=== PATIENT | female | born 1965 | race Caucasian/White ===

== ENCOUNTER → 2017-03-31 | Outpatient (REF) | payer MEDICARE ==
[2017-03-31 20:26] LABS: FREE T4 1.2 NG/DL (0.76-1.46)
== END ==
LOC: M SFHCPLAZ 14:53
PROVIDERS: ATTEND Nurse Practitioner Family
DX: E03.9 Hypothyroidism, unspecified (principal)
CPT/HCPCS: 36415; 84439; 84443; G0463

== ENCOUNTER 2017-07-01 08:39 | Outpatient (CLI) | payer MEDICARE, MEDICAID ==
[~2017-07-01] VITALS: Ht 157.5 cm; Wt 111.1 kg
[2017-07-01] MEDS: LR 1,000 ML IV SCH ×2 (07:00→09:18)
[~2017-07-01 08:39] MED LIST: CETI10TA PO; LEVO50TA5 PO; VITA200010 PO
[2017-07-01] MEDS ORDERED: LIDOCAINE 2% INJ 100 MG/5 ML SDV (FOR ANES.) As Ordered ONE (09:53)
[2017-07-01] MEDS ORDERED: PROPOFOL 200 MG/20 ML VIAL As Ordered ONE (09:53)
[2017-07-01] MEDS ORDERED: GLYCOPYRROLATE INJ 0.2 MG/ML 2 ML VIAL As Ordered ONE (10:26)
--- NOTE | 2017-07-01 10:47 | ROOR ---
Patient Name: Brii Alvares Procedure Date: 07/01/2017 10:19 AM Date of : 1965 Age: 52 Room: [facility] Gender: Female Note Status: Finalized Procedure: Colonoscopy Indications: Screening for colorectal malignant neoplasm, This is the patient's first colonoscopy Providers: Alex العراقي MD Referring MD: NYA RIZZO MD Requesting Provider: Medicines: Monitored Anesthesia Care Complications: No immediate complications. Procedure: Pre-Anesthesia Assessment: - Prior to the procedure, a History and Physical was performed, and patient medications and allergies were reviewed. The patient is competent. The risks and benefits of the procedure and the sedation options and risks were discussed with the patient. All questions were answered and informed consent was obtained. Patient identification and proposed procedure were verified by the physician, the nurse and the anesthesiologist in the procedure room. Mental Status Examination: alert and oriented. Airway Examination: normal oropharyngeal airway and neck mobility. CV Examination: regular rate and rhythm. Prophylactic Antibiotics: The patient does not require prophylactic antibiotics. Prior Anticoagulants: The patient has taken no previous anticoagulant or antiplatelet agents. ASA Grade Assessment: II - A patient with mild systemic disease. After reviewing the risks and benefits, the patient was deemed in satisfactory condition to undergo the procedure. The anesthesia plan was to use monitored anesthesia care (MAC). Immediately prior to administration of medications, the patient was re-assessed for adequacy to receive sedatives. The heart rate, respiratory rate, oxygen saturations, blood pressure, adequacy of pulmonary ventilation, and response to care were monitored throughout the procedure. The physical status of the patient was re-assessed after the procedure. The Colonoscope [id number] #[id number] was introduced through the anus and advanced to the cecum, identified by appendiceal orifice and ileocecal valve. The colonoscopy was performed without difficulty. The patient tolerated the procedure well. The quality of the bowel preparation was excellent. Findings: The perianal and digital rectal examinations were normal. A 3 mm polyp was found in the rectum. The polyp was semi-sessile. The polyp was removed with a jumbo cold forceps. Resection and retrieval were complete. Estimated blood loss was minimal. The exam was otherwise without abnormality. Impression: - One 3 mm polyp in the rectum, removed with a jumbo cold forceps. Resected and retrieved. - The examination was otherwise normal. Recommendation: - Discharge patient to home. - Resume previous diet. - Continue present medications. - Await pathology results. - Telephone endoscopist for pathology results in 1 week. Alex العراقي MD 07/01/2017 10:47:21 AM Number of Addenda: 0 Note Initiated On: 07/01/2017 10:19 AM Estimated Blood Loss: Estimated blood loss was minimal.
[2017-07-01 11:03] VITALS: BP 132/94
== END 2017-07-01 11:07 | disposition home or self-care (01) ==
LOC: M OPP 08:39
PROVIDERS: ATTEND Surgery
DX: Z12.11 Encounter for screening for malignant neoplasm of colon (principal); K62.1 Rectal polyp; E03.9 Hypothyroidism, unspecified; E66.9 Obesity, unspecified; F79 Unspecified intellectual disabilities; Z88.1 Allergy status to other antibiotic agents; Z79.899 Other long term (current) drug therapy; Z83.71 Family history of colonic polyps; Z80.42 Family history of malignant neoplasm of prostate

== ENCOUNTER → 2017-07-17 | Outpatient (CLI) | payer MEDICARE, MEDICAID ==
--- NOTE | 2017-07-17 10:03 | REPMRS ---
Patient History The patient states she had a clinical breast exam in 07/2017. Patient is nulliparous. Family history of unknown cancer in maternal aunt. Digital Woman Screen Mammo: July 17, 2017 - Exam #: [id number] Bilateral CC and MLO view(s) were taken. Technologist: Nancy Aparicio, Technologist Prior study comparison: July 16, 2016, digital woman screen mammo performed at [facility]. July 13, 2015, digital woman screen mammo performed at [facility]. FINDINGS: There are scattered fibroglandular densities. There has been no change in the appearance of the mammogram from the prior studies. There is a mild amount of residual fibroglandular tissue which is fairly symmetric. There is no interval development of dominant mass, architectural distortion, or clustered microcalcification suggestive of malignancy. ASSESSMENT: BI-RADS/ACR category 1 mammogram. Negative. Recommendation Routine screening mammogram in 1 year (for women over age 40). This mammogram was interpreted with the aid of an FDA-approved computer-aided dectection system. Electronically Signed By: Mg Doll MD 07/17/17 1002
== END ==
LOC: M WHC 08:30
PROVIDERS: ATTEND Nurse Practitioner Women's Health
DX: Z01.419 Encounter for gynecological examination (general) (routine) without abnormal findings (principal); Z12.31 Encounter for screening mammogram for malignant neoplasm of breast
CPT/HCPCS: G0101; G0202

== ENCOUNTER 2017-10-11 09:11 | Outpatient (CLI) | payer MEDICARE, MEDICAID | END 2017-10-12 | LOC: M WUC 09:11 | DX: E78.5 Hyperlipidemia, unspecified (principal); E03.9 Hypothyroidism, unspecified | CPT/HCPCS: 36415 ==

== ENCOUNTER → 2017-10-24 | Outpatient (CLI) | payer MEDICARE, MEDICAID ==
[2017-10-24 09:24] LABS: ALBUMIN 3.5 GM/DL (3.2-5.2); ALBUMIN/GLOBULIN RATIO 1.21 (1.00-1.93); ALKALINE PHOSPHATASE 68 U/L (45-117); ALT/SGPT 20 U/L (12-78); ANION GAP 5 MEQ/L (8-16); AST/SGOT 14 U/L (7-37); BILIRUBIN,TOTAL 0.4 MG/DL (0.2-1.0); BLOOD UREA NITROGEN 14 MG/DL (7-18); CALCIUM LEVEL 8.5 MG/DL (8.5-10.1); CARBON DIOXIDE LEVEL 31 MEQ/L (21-32); CHLORIDE LEVEL 104 MEQ/L (98-107); CHOLESTEROL LEVEL 167 MG/DL (<200); CREATININE FOR GFR 0.67 MG/DL (0.55-1.02); GLOMERULAR FILTRATION RATE > 60.0 (>51); GLUCOSE, FASTING 81 MG/DL (70-105); POTASSIUM SERUM 4.7 MEQ/L (3.5-5.1); SODIUM LEVEL 140 MEQ/L (136-145); TOTAL PROTEIN 6.4 GM/DL (6.4-8.2); TRIGLYCERIDES LEVEL 51 MG/DL (<150)
== END ==
LOC: M WUC 08:03
PROVIDERS: ATTEND Nurse Practitioner Family
DX: E78.5 Hyperlipidemia, unspecified (principal); E03.9 Hypothyroidism, unspecified; E55.9 Vitamin D deficiency, unspecified

== ENCOUNTER → 2018-03-05 | Outpatient (CLI) | payer MEDICARE, MEDICAID | LOC: M RAD 14:44 | DX: N92.1 Excessive and frequent menstruation with irregular cycle (principal); D25.9 Leiomyoma of uterus, unspecified | CPT/HCPCS: 76856 ==

== ENCOUNTER → 2018-04-15 | Outpatient (REF) | payer MEDICARE, MEDICAID ==
[2018-04-15 17:25] LABS: BASO % 0.5 % (0.0-1.0); EOS # 0.1 10^3/uL (0.0-0.50); EOS % 1.1 % (0.0-3.0); HEMATOCRIT 39.4 % (36.0-47.0); HEMOGLOBIN 13.2 g/dl (12.0-15.5); IMMATURE GRANULOCYTE % 0.2 % (0-3.0); LYMPH # 1.9 10^3/uL (1.5-4.5); LYMPH % 28.5 % (24.0-44.0); MEAN CORPUSCULAR HEMOGLOBIN 29.3 pg (27.0-33.0); MEAN CORPUSCULAR HGB CONC 33.5 g/dl (32.0-36.5); MEAN CORPUSCULAR VOLUME 87.6 fl (80.0-96.0); MONO # 0.6 10^3/uL (0.0-0.8); MONO % 9.2 % (0.0-5.0); NEUTROPHILS % 60.5 % (36.0-66.0); PLATELET COUNT, AUTOMATED 222 10^3/uL (150-450); RED CELL DISTRIBUTION WIDTH 12.1 % (11.5-14.5); WHITE BLOOD COUNT 6.6 10^3/uL (4.0-10.0)
[2018-04-15 17:28] LABS: INR 0.94; PROTHROMBIN TIME 12.6 SECONDS (12.4-14.5)
[2018-04-15 17:29] LABS: PARTIAL THROMBOPLASTIN TIME 34.2 SECONDS (26.8-37.9)
[2018-04-15 17:40] LABS: ANION GAP 4 MEQ/L (8-16); BLOOD UREA NITROGEN 16 MG/DL (7-18); CALCIUM LEVEL 9.1 MG/DL (8.5-10.1); CARBON DIOXIDE LEVEL 32 MEQ/L (21-32); CHLORIDE LEVEL 106 MEQ/L (98-107); CREATININE FOR GFR 0.75 MG/DL (0.55-1.30); GLOMERULAR FILTRATION RATE > 60.0 (>51); GLUCOSE, FASTING 82 MG/DL (70-100); POTASSIUM SERUM 4.7 MEQ/L (3.5-5.1); SODIUM LEVEL 142 MEQ/L (136-145)
[2018-04-15 19:33] LABS: ESTIMATED AVERAGE GLUCOSE 82 MG/DL (60-110); HEMOGLOBIN A1c 4.5 %
== END ==
LOC: M SFHCPLAZ 15:07
DX: Z01.818 Encounter for other preprocedural examination (principal); Z13.1 Encounter for screening for diabetes mellitus; Z79.899 Other long term (current) drug therapy
CPT/HCPCS: 83036

== ENCOUNTER → 2018-06-04 | Outpatient (CLI) | payer MEDICARE, MEDICAID | LOC: M RAD 17:17 | DX: M79.9 Soft tissue disorder, unspecified (principal) | CPT/HCPCS: 76604 ==

== ENCOUNTER → 2018-07-20 | Outpatient (REF) | payer MEDICARE, MEDICAID ==
[2018-07-23 14:14] LABS: HPV HYBRID CAPTURE II Negative (Negative)
== END ==
LOC: M SFHCWAGY 08:24
DX: Z12.72 Encounter for screening for malignant neoplasm of vagina (principal)
CPT/HCPCS: G0123

== ENCOUNTER → 2018-07-20 | Outpatient (CLI) | payer MEDICARE, MEDICAID | LOC: M WHC 08:19 | DX: Z12.31 Encounter for screening mammogram for malignant neoplasm of breast (principal); Z92.89 Personal history of other medical treatment; Z12.72 Encounter for screening for malignant neoplasm of vagina | CPT/HCPCS: 77067; G0123 ==

== ENCOUNTER → 2018-07-28 | Outpatient (CLI) | payer MEDICARE, MEDICAID ==
[~2018-07-28] MED LIST changes: -CETI10TA PO; -LEVO50TA5 PO; +PROHANCE 279.3MG/ML 15ML VIAL (A9576) As Ordered; -VITA200010 PO
== END ==
LOC: M RAD 09:28
DX: M51.24 Other intervertebral disc displacement, thoracic region (principal)
CPT/HCPCS: A9576

== ENCOUNTER → 2018-10-30 | Outpatient (REF) | payer MEDICARE, MEDICAID | LOC: M SFHCWAGY 14:33 | DX: Z12.72 Encounter for screening for malignant neoplasm of vagina (principal); Z85.42 Personal history of malignant neoplasm of other parts of uterus | CPT/HCPCS: G0123 ==

== ENCOUNTER → 2018-10-31 | Outpatient (CLI) | payer MEDICARE, MEDICAID ==
[2018-10-31 10:54] LABS: ESTIMATED AVERAGE GLUCOSE 97 MG/DL (60-110)
[2018-10-31 11:00] LABS: CHOLESTEROL LEVEL 163 MG/DL (<200); CHOLESTEROL RISK RATIO 2.328 (<5); FREE T4 1.16 NG/DL (0.76-1.46); HDL CHOLESTEROL 70 MG/DL (>40); LDL CHOLESTEROL 80 MG/DL (<100); NON-HDL-C 93 MG/DL; TRIGLYCERIDES LEVEL 63 MG/DL (<150)
== END ==
LOC: M WUC 08:04
DX: Z13.220 Encounter for screening for lipoid disorders (principal); Z13.1 Encounter for screening for diabetes mellitus; E55.9 Vitamin D deficiency, unspecified; E03.9 Hypothyroidism, unspecified; Z79.899 Other long term (current) drug therapy
CPT/HCPCS: 84443

== ENCOUNTER 2019-01-01 10:56 | Day surgery (SDC) | payer MEDICARE, MEDICAID ==
[~2019-01-01] VITALS: Ht 157.5 cm; Wt 120.2 kg
[~2019-01-01 10:56] MED LIST changes: +CETI10TA PO; +LEVO50TA5 PO; +LR 1,000 ML IV ONE; -PROHANCE 279.3MG/ML 15ML VIAL (A9576) As Ordered; +VITA200010 PO
[2019-01-01] MEDS ORDERED: MIDAZOLAM INJ 2 MG/2 ML VIAL (J2250) As Ordered ONE (14:22)
[2019-01-01] MEDS ORDERED: LIDOCAINE 2% INJ 100 MG/5 ML SDV (FOR ANES.) As Ordered ONE (14:22)
[2019-01-01] MEDS ORDERED: fentaNYL 100 MCG/2 ML INJECTION (J3010) As Ordered ONE (14:22)
[2019-01-01] MEDS ORDERED: PROPOFOL 200 MG/20 ML VIAL As Ordered ONE ×2 (14:22→14:55)
[2019-01-01] MEDS ORDERED: LIDOCAINE 0.5% SDV INJ 50 ML VIAL As Ordered ONE (14:55)
[2019-01-01] MEDS ORDERED: KETAMINE HCL 200 MG/20 ML VIAL As Ordered ONE (15:00)
[2019-01-01] MEDS ORDERED: PERCOCET 5MG/325MG TAB PO PRN (16:15)
[2019-01-01] MEDS ORDERED: ONDANSETRON 4MG/2ML VIAL (J2405) IV PRN (16:15)
[2019-01-01] MEDS ORDERED: LR 1,000 ML IV SCH (16:15)
[2019-01-01 16:40] VITALS: BP 150/97
--- NOTE | 2019-01-02 09:28 | RO ---
DATE OF PROCEDURE: 01/01/2019 PREOPERATIVE DIAGNOSIS: Right lower back mass. POSTOPERATIVE DIAGNOSIS: Right lower back mass. PROCEDURE PERFORMED: Excision of right lower back subcutaneous mass approximately 8 x 5 x 5 cm in size. SURGEON: Dr. Alex العراقي ANESTHESIA: Monitored anesthesia care with local anesthesia of 0.5% lidocaine INDICATIONS FOR PROCEDURE: Patient is of 53-year-old woman who noted a lump in the subcutaneous tissues of the right lower back. She was evaluated with an ultrasound which showed no discrete mass and an MRI of the back was done as well which suggested a fatty tissue mass in the subcutaneous fat. She is now for excision. OPERATIVE PROCEDURE: The patient was placed on the operating table in a left lateral position. She received monitored anesthesia care. The patient's lower back was prepped and draped in a sterile fashion. By palpation, she had an approximately 7-8 cm subcutaneous mass identified. Local anesthesia was achieved with 0.5% lidocaine. An approximately 6-7 cm transverse skin incision was made. This was deepened into the subcutaneous tissues. A protruding lump of fibrofatty tissue was identified. This was dissected circumferentially and the dissection was deepened through the superficial fascia as the mass clearly extended deeper into the soft tissues of the back. The mass was then dissected free using a combination of sharp and cautery dissection. The mass was completely removed. Examination suggested that the entire lesion had been removed with a small amount of overlying subcutaneous fatty tissue. The mass was 8 x 5 x 5 cm in size and this was sent for permanent pathology. Hemostasis was ensured with electrocautery. The subcutaneous tissues were closed with #3-0 chromic and the skin edges were brought into approximation with some buried #3-0 chromic sutures as well. A running subcuticular #4-0 Vicryl was used to close the skin edges and Steri-Strips were applied. A sterile dressing was applied. The patient tolerated the procedure well without apparent complication. She was awakened in the operating room and transported to the recovery room in stable condition. ROSANNA
== END 2019-01-01 16:49 | disposition home or self-care (01) ==
LOC: M SDC 10:56
PROVIDERS: ATTEND Surgery
DX: D17.1 Benign lipomatous neoplasm of skin and subcutaneous tissue of trunk (principal); E03.9 Hypothyroidism, unspecified; Z86.711 Personal history of pulmonary embolism; Z79.899 Other long term (current) drug therapy; E78.5 Hyperlipidemia, unspecified; E66.01 Morbid (severe) obesity due to excess calories; F71 Moderate intellectual disabilities
CPT/HCPCS: 21933; 88304; J2250; J3010

== ENCOUNTER → 2019-01-28 | Outpatient (REF) | payer MEDICARE, MEDICAID ==
[~2019-01-28] MED LIST changes: -LR 1,000 ML IV ONE
[2019-02-04 14:24] LABS: HPV HYBRID CAPTURE II Negative (Negative)
== END ==
LOC: M SFHCWAGY 14:35
PROVIDERS: ATTEND Nurse Practitioner Women's Health
DX: Z12.72 Encounter for screening for malignant neoplasm of vagina (principal); Z85.42 Personal history of malignant neoplasm of other parts of uterus; R87.610 Atypical squamous cells of undetermined significance on cytologic smear of cervix (ASC-US)
CPT/HCPCS: 87624; G0123; G0463

== ENCOUNTER → 2019-04-21 | Outpatient (CLI) | payer MEDICARE, MEDICAID ==
--- NOTE | 2019-04-21 17:40 | REP ---
Clinical: Posterior auricular mass. Technique: Real time santana scale ultrasound examination using linear high frequency transducer. Findings: Directed ultrasound examination of the left posterior auricular region demonstrates no obvious fluid collection, cyst or mass. Right side was scanned for comparison and demonstrated similar findings without abnormality. Impression: No obvious abnormality identified by ultrasound examination. Electronically Signed by Peterson Oliveira MD 04/21/2019 05:31 P
== END ==
LOC: M RAD 16:08
PROVIDERS: ATTEND Family Medicine
DX: M79.9 Soft tissue disorder, unspecified (principal)

== ENCOUNTER → 2019-04-22 | Outpatient (REF) | payer MEDICARE, MEDICAID | LOC: M SFHCWAGY 14:20 | PROVIDERS: ATTEND Nurse Practitioner Women's Health | DX: Z12.72 Encounter for screening for malignant neoplasm of vagina (principal); Z85.42 Personal history of malignant neoplasm of other parts of uterus; N76.0 Acute vaginitis ==

== ENCOUNTER → 2019-07-08 | Outpatient (CLI) | payer MEDICARE, MEDICAID ==
--- NOTE | 2019-07-08 12:22 | REPMRS ---
Patient History The patient states she had a clinical breast exam in 07/2019. Family history of unknown cancer in maternal aunt. No Hormone Replacement Therapy 3D TOMOSYNTHESIS WAS PERFORMED. [facility] lifetime risk for breast cancer is 11.6%. Digital Woman Screen Mammo: July 08, 2019 - Exam #: [id number] Bilateral CC and MLO view(s) were taken. Technologist: Nancy Aparicio, Technologist Prior study comparison: July 20, 2018, bilateral digital woman screen mammo performed at [facility]. July 17, 2017, digital woman screen mammo performed at [facility]. FINDINGS: There are scattered fibroglandular densities. There has been no change in the appearance of the mammogram from the prior studies. There is a mild amount of residual fibroglandular tissue which is fairly symmetric. There is no interval development of dominant mass, architectural distortion, or clustered microcalcification suggestive of malignancy. Assessment: BI-RADS/ACR category 1 mammogram. Negative Mammogram. Recommendation Routine screening mammogram in 1 year (for women over age 40). This mammogram was interpreted with the aid of an FDA-approved computer-aided dectection system. Electronically Signed By: Mg Doll MD 07/08/19 [id number]
== END ==
LOC: M WHC 09:29
PROVIDERS: ATTEND Nurse Practitioner Women's Health
DX: Z01.419 Encounter for gynecological examination (general) (routine) without abnormal findings (principal); Z12.31 Encounter for screening mammogram for malignant neoplasm of breast
CPT/HCPCS: 77063; 77067; G0101; G0123

== ENCOUNTER → 2019-07-08 | Outpatient (REF) | payer MEDICARE, MEDICAID | LOC: M SFHCWAGY 09:52 | PROVIDERS: ATTEND Nurse Practitioner Women's Health | DX: Z12.4 Encounter for screening for malignant neoplasm of cervix (principal); Z85.42 Personal history of malignant neoplasm of other parts of uterus ==

== ENCOUNTER → 2019-07-19 | Outpatient (REF) | payer MEDICARE, MEDICAID ==
[2019-07-19 11:57] LABS: FREE T4 1.22 NG/DL (0.76-1.46); THYROID STIMULATING HORMONE 1.21 uIU/ML (0.358-3.740)
== END ==
LOC: M SFHCPLAZ 10:16
PROVIDERS: ATTEND Family Medicine
DX: E03.9 Hypothyroidism, unspecified (principal)
CPT/HCPCS: 84439; 84443; G0463

== ENCOUNTER → 2019-10-20 | Outpatient (REF) | payer MEDICARE, MEDICAID | LOC: M SFHCWAGY 14:42 | PROVIDERS: ATTEND Nurse Practitioner Women's Health | DX: Z12.4 Encounter for screening for malignant neoplasm of cervix (principal) | CPT/HCPCS: G0123; G0463 ==

== ENCOUNTER → 2020-01-25 | Outpatient (REF) | payer MEDICARE, MEDICAID | LOC: M SFHCWAGY 17:10 | PROVIDERS: ATTEND Nurse Practitioner Women's Health | DX: Z12.72 Encounter for screening for malignant neoplasm of vagina (principal); Z85.42 Personal history of malignant neoplasm of other parts of uterus; N76.0 Acute vaginitis | CPT/HCPCS: G0123; G0463 ==

== ENCOUNTER → 2020-04-20 | Outpatient (REF) | payer MEDICARE, MEDICAID | LOC: M SFHCWAGY 17:00 | PROVIDERS: ATTEND Nurse Practitioner Women's Health | DX: Z12.72 Encounter for screening for malignant neoplasm of vagina (principal); Z85.42 Personal history of malignant neoplasm of other parts of uterus; R87.628 Other abnormal cytological findings on specimens from vagina | CPT/HCPCS: G0123; G0463 ==

== ENCOUNTER → 2020-05-29 | Outpatient (REF) | payer MEDICARE, MEDICAID ==
[2020-05-29 12:37] LABS: BASO % 0.6 % (0.0-1.0); EOS # 0.1 10^3/uL (0.0-0.5); EOS % 1.6 % (0.0-3.0); HEMOGLOBIN 13.8 g/dl (12.0-15.5); LYMPH # 1.5 10^3/uL (1.5-5.0); LYMPH % 30.3 % (24.0-44.0); MEAN CORPUSCULAR HEMOGLOBIN 29.3 pg (27.0-33.0); MEAN CORPUSCULAR HGB CONC 32.9 g/dl (32.0-36.5); MEAN CORPUSCULAR VOLUME 89.2 fl (80.0-96.0); MONO # 0.5 10^3/uL (0.0-0.8); NEUTROPHILS # 2.9 10^3/uL (1.5-8.5); NEUTROPHILS % 58.3 % (36.0-66.0); PLATELET COUNT, AUTOMATED 209 10^3/uL (150-450); RED BLOOD COUNT 4.71 10^6/uL (4.00-5.40)
[2020-05-29 12:49] LABS: ALBUMIN 3.5 GM/DL (3.2-5.2); ALT/SGPT 25 U/L (12-78); BILIRUBIN,TOTAL 0.5 MG/DL (0.2-1.0); BLOOD UREA NITROGEN 15 MG/DL (7-18); CALCIUM LEVEL 8.8 MG/DL (8.5-10.1); CARBON DIOXIDE LEVEL 31 MEQ/L (21-32); CHLORIDE LEVEL 107 MEQ/L (98-107); CHOLESTEROL LEVEL 194 MG/DL (<200); CHOLESTEROL RISK RATIO 2.811 (<5); FREE T4 1.28 NG/DL (0.76-1.46); GLOMERULAR FILTRATION RATE > 60.0 (>51); GLUCOSE, FASTING 81 MG/DL (70-100); HDL CHOLESTEROL 69 MG/DL (>40); LDL CHOLESTEROL 109 MG/DL (<100); NON-HDL-C 125 MG/DL; POTASSIUM SERUM 4.2 MEQ/L (3.5-5.1); SODIUM LEVEL 142 MEQ/L (136-145); TOTAL PROTEIN 6.8 GM/DL (6.4-8.2); TRIGLYCERIDES LEVEL 80 MG/DL (<150)
[2020-05-29 12:51] LABS: TOTAL 25(OH) VITAMIN D 34.5 NG/ML (30.0-100.0)
== END ==
LOC: M SFHCCLAY 08:20
PROVIDERS: ATTEND Nurse Practitioner Family
DX: E66.01 Morbid (severe) obesity due to excess calories (principal); F71 Moderate intellectual disabilities; E78.5 Hyperlipidemia, unspecified; E03.9 Hypothyroidism, unspecified; Z86.711 Personal history of pulmonary embolism; J30.9 Allergic rhinitis, unspecified; E55.9 Vitamin D deficiency, unspecified

== ENCOUNTER → 2020-10-20 | Outpatient (REF) | payer MEDICARE, MEDICAID | LOC: M SFHCWAGY 17:06 | PROVIDERS: ATTEND Nurse Practitioner Women's Health | DX: Z12.72 Encounter for screening for malignant neoplasm of vagina (principal); Z85.44 Personal history of malignant neoplasm of other female genital organs | CPT/HCPCS: G0123; G0463 ==

== ENCOUNTER → 2021-02-04 | Outpatient (REF) | payer MEDICARE, MEDICAID | LOC: M WUC 19:10 | PROVIDERS: ATTEND Physician Assistant | DX: J02.9 Acute pharyngitis, unspecified (principal) ==

== ENCOUNTER → 2021-04-10 | Outpatient (REF) | payer MEDICARE, MEDICAID | LOC: M SFHCWAGY 17:13 | PROVIDERS: ATTEND Nurse Practitioner Women's Health | DX: Z12.72 Encounter for screening for malignant neoplasm of vagina (principal) | CPT/HCPCS: G0123; G0463 ==

== ENCOUNTER → 2021-05-08 | Outpatient (CLI) | payer MEDICARE, MEDICAID ==
--- NOTE | 2021-05-08 17:28 | REPMRS ---
Patient History The patient states she has not had a clinical breast exam in over a year. Patient is nulliparous. Family history of unknown cancer in maternal aunt, unknown cancer in sister. No Hormone Replacement Therapy Tomosynthesis is performed. Volpara breast density is a. [facility] lifetime risk of breast cancer 11.1%. 50 lb intentional weight loss. Patient states no breast complaints today. Patient has signed MRS History Sheet. Digital Woman Screen Mammo: May 08, 2021 - Exam #: [id number] Bilateral CC and MLO view(s) were taken. Technologist: RT Anita Prior study comparison: July 08, 2019, bilateral digital woman screen mammo performed at [facility]. July 20, 2018, bilateral digital woman screen mammo performed at [facility]. FINDINGS: There are scattered fibroglandular densities. There has been no change in the appearance of the mammogram from the prior studies. There is a mild amount of residual fibroglandular tissue which is fairly symmetric. There is no interval development of dominant mass, architectural distortion, or clustered microcalcification suggestive of malignancy. Assessment: BI-RADS/ACR category 1 mammogram. Negative Mammogram. Recommendation Routine screening mammogram in 1 year (for women over age 40). This mammogram was interpreted with the aid of an FDA-approved computer-aided dectection system. Electronically Signed By: Mg Doll MD 05/08/21 3522
== END ==
LOC: M WHC 15:12
PROVIDERS: ATTEND Nurse Practitioner Women's Health
DX: Z12.31 Encounter for screening mammogram for malignant neoplasm of breast (principal)

== ENCOUNTER → 2021-09-13 | Outpatient (CLI) | payer MEDICARE, MEDICAID ==
[~2021-09-13] MED LIST changes: +BUPR300T92 PO
== END ==
LOC: M LABSMTC 09:19
PROVIDERS: ATTEND Anesthesiology
DX: Z01.812 Encounter for preprocedural laboratory examination (principal); Z20.822 Contact with and (suspected) exposure to COVID-19

== ENCOUNTER 2021-09-18 09:00 | Day surgery (SDC) | payer MEDICARE, MEDICAID ==
[~2021-09-18] VITALS: Ht 157.5 cm; Wt 112.5 kg
[~2021-09-18 09:00] MED LIST changes: +NS 1,000 ML IV ONE
--- OUTSIDE RECORDS SUMMARY | 2021-09-18 09:05 | CCD ---
Author Author [facility] [email or web address] [facility] [employer] Organization [facility] [employer] Address Unknown Phone Unavailable Care Team Providers Care [employer] Name Role Phone Jessica Morin Unavailable PROBLEMS ALLERGIES ENCOUNTERS from 1965 to 2021-07-03 IMMUNIZATIONS SOCIAL HISTORY REASON FOR REFERRAL No Information VITAL SIGNS MEDICATIONS PROCEDURES No Information RESULTS No Results REASON FOR VISIT MEDICAL (GENERAL) HISTORY Goals Section Health Concerns MEDICAL EQUIPMENT No Information MENTAL STATUS FUNCTIONAL STATUS ASSESSMENTS PLAN OF TREATMENT Insurance Providers
--- OUTSIDE RECORDS SUMMARY | 2021-09-18 09:06 | CCD ---
Author Author [facility] Organization [facility] Address Unknown Phone Unavailable Care Team Providers Care Senior Risk Manager Name Role Phone Cyrus ROMERO Unavailable Unavailable LETTIERE, Cyrus OWENS Unavailable Unavailable LETTIERE, Cyrus OWENS Unavailable Unavailable LETTIERE, Cyrus OWENS Unavailable Unavailable LETTIERE, Cyrus OWENS Unavailable Unavailable LETTIERE, Cyrus OWENS Unavailable Unavailable LETTIERE, Cyrus OWENS Unavailable Unavailable LETTIERE, Cyrus OWENS Unavailable Unavailable LETTIERE, Cyrus OWENS Unavailable Unavailable LETTIERE, Cyrus OWENS Unavailable Unavailable LETTIERE, A JAKOB PA Unavailable Unavailable LETTIERE, A JAKOB PA Unavailable Unavailable LETTIERE, A JAKOB PA Unavailable Unavailable LETTIERE, A JAKOB PA Unavailable Unavailable LETTIERE, A JAKOB PA Unavailable Unavailable LETTIERE, A JAKOB PA Unavailable Unavailable LETTIERE, A JAKOB PA Unavailable Unavailable LETTIERE, A JAKOB PA Unavailable Unavailable LETTIERE, A JAKOB PA Unavailable Unavailable LETTIERE, A JAKOB PA Unavailable Unavailable LETTIERE, A JAKOB PA Unavailable Unavailable LETTIERE, A JAKOB PA Unavailable Unavailable LETTIERE, A JAKOB PA Unavailable Unavailable LETTIERE, A JAKOB PA Unavailable Unavailable LETTIERE, A JAKOB PA Unavailable Unavailable LETTIERE, A JAKOB PA Unavailable Unavailable LETTIERE, A JAKOB PA Unavailable Unavailable LETTIERE, A JAKOB PA Unavailable Unavailable LETTIERE, A JAKOB PA Unavailable Unavailable LETTIERE, A JAKOB PA Unavailable Unavailable LETTIERE, A JAKOB PA Unavailable Unavailable Alberry, D Jessica CISTERN ROOM WORKING SUPERVISOR Unavailable Unavailable Alberry, D Jessica CISTERN ROOM WORKING SUPERVISOR Unavailable Unavailable Alberry, D Jessica CISTERN ROOM WORKING SUPERVISOR Unavailable Unavailable Alberry, D Jessica CISTERN ROOM WORKING SUPERVISOR Unavailable Unavailable Alberry, D Jessica CISTERN ROOM WORKING SUPERVISOR Unavailable Unavailable Alberry, D Jessica CISTERN ROOM WORKING SUPERVISOR Unavailable Unavailable Alberry, D Jessica CISTERN ROOM WORKING SUPERVISOR Unavailable Unavailable Alberry, D Jessica CISTERN ROOM WORKING SUPERVISOR Unavailable Unavailable Alberry, D Jessica CISTERN ROOM WORKING SUPERVISOR Unavailable Unavailable Alberry, D Jessica CISTERN ROOM WORKING SUPERVISOR Unavailable Unavailable Alberry, D Jessica CISTERN ROOM WORKING SUPERVISOR Unavailable Unavailable Alberry, D Jessica CISTERN ROOM WORKING SUPERVISOR Unavailable Unavailable Alberry, D Jessica CISTERN ROOM WORKING SUPERVISOR Unavailable Unavailable Alberry, D Jessica CISTERN ROOM WORKING SUPERVISOR Unavailable Unavailable Alberry, D Jessica CISTERN ROOM WORKING SUPERVISOR Unavailable Unavailable Alberry, D Jessica CISTERN ROOM WORKING SUPERVISOR Unavailable Unavailable Alberry, D Jessica CISTERN ROOM WORKING SUPERVISOR Unavailable Unavailable Alberry, D Jessica CISTERN ROOM WORKING SUPERVISOR Unavailable Unavailable Alberry, D Jessica CISTERN ROOM WORKING SUPERVISOR Unavailable Unavailable Alberry, D Jessica CISTERN ROOM WORKING SUPERVISOR Unavailable Unavailable Alberry, D Jessica CISTERN ROOM WORKING SUPERVISOR Unavailable Unavailable Alberry, D Jessica CISTERN ROOM WORKING SUPERVISOR Unavailable Unavailable Alberry, D Jessica CISTERN ROOM WORKING SUPERVISOR Unavailable Unavailable Alberry, D Jessica CISTERN ROOM WORKING SUPERVISOR Unavailable Unavailable Alberry, D Jessica CISTERN ROOM WORKING SUPERVISOR Unavailable Unavailable Alberry, D Jessica CISTERN ROOM WORKING SUPERVISOR Unavailable Unavailable Alberry, D Jessica CISTERN ROOM WORKING SUPERVISOR Unavailable Unavailable Alberry, D Jessica CISTERN ROOM WORKING SUPERVISOR Unavailable Unavailable Alberry, D Jessica CISTERN ROOM WORKING SUPERVISOR Unavailable Unavailable Alberry, D Jessica CISTERN ROOM WORKING SUPERVISOR Unavailable Unavailable Alberry, D Jessica CISTERN ROOM WORKING SUPERVISOR Unavailable Unavailable Alberry, D Jessica CISTERN ROOM WORKING SUPERVISOR Unavailable Unavailable Alberry, D Jessica CISTERN ROOM WORKING SUPERVISOR Unavailable Unavailable Alberry, D Jessica CISTERN ROOM WORKING SUPERVISOR Unavailable Unavailable Alberry, D Jessica CISTERN ROOM WORKING SUPERVISOR Unavailable Unavailable Alberry, D Jessica CISTERN ROOM WORKING SUPERVISOR Unavailable Unavailable Alberry, D Jessica CISTERN ROOM WORKING SUPERVISOR Unavailable Unavailable Alberry, D Jessica CISTERN ROOM WORKING SUPERVISOR Unavailable Unavailable Alberry, D Jessica CISTERN ROOM WORKING SUPERVISOR Unavailable Unavailable Alberry, D Jessica CISTERN ROOM WORKING SUPERVISOR Unavailable Unavailable Alberry, D Jessica CISTERN ROOM WORKING SUPERVISOR Unavailable Unavailable Alberry, D Jessica CISTERN ROOM WORKING SUPERVISOR Unavailable Unavailable Alberry, D Jessica CISTERN ROOM WORKING SUPERVISOR Unavailable Unavailable Alberry, D Jessica CISTERN ROOM WORKING SUPERVISOR Unavailable Unavailable Alberry, D Jessica CISTERN ROOM WORKING SUPERVISOR Unavailable Unavailable Alberry, D Jessica CISTERN ROOM WORKING SUPERVISOR Unavailable Unavailable Alberry, D Jessica CISTERN ROOM WORKING SUPERVISOR Unavailable Unavailable Alberry, D Jessica CISTERN ROOM WORKING SUPERVISOR Unavailable Unavailable Alberry, D Jessica CISTERN ROOM WORKING SUPERVISOR Unavailable Unavailable Alberry, D Jessica CISTERN ROOM WORKING SUPERVISOR Unavailable Unavailable Alberry, D Jessica CISTERN ROOM WORKING SUPERVISOR Unavailable Unavailable Alberry, D Jessica CISTERN ROOM WORKING SUPERVISOR Unavailable Unavailable Alberry, D Jessica CISTERN ROOM WORKING SUPERVISOR Unavailable Unavailable Alberry, D Jessica CISTERN ROOM WORKING SUPERVISOR Unavailable Unavailable Alberry, D Jessica CISTERN ROOM WORKING SUPERVISOR Unavailable Unavailable Dille, E Diana DDS Unavailable Unavailable Dille, E Diana DDS Unavailable Unavailable Dille, E Diana DDS Unavailable Unavailable Dille, E Diana DDS Unavailable Unavailable SYMENOW, G CHRISTOPHER PA Unavailable Unavailable SYMENOW, G CHRISTOPHER PA Unavailable Unavailable SYMENOW, G CHRISTOPHER PA Unavailable Unavailable SYMENOW, G CHRISTOPHER PA Unavailable Unavailable SYMENOW, G CHRISTOPHER PA Unavailable Unavailable SYMENOW, G CHRISTOPHER PA Unavailable Unavailable SYMENOW, G CHRISTOPHER PA Unavailable Unavailable SYMENOW, G CHRISTOPHER PA Unavailable Unavailable SYMENOW, G CHRISTOPHER PA Unavailable Unavailable SYMENOW, G CHRISTOPHER PA Unavailable Unavailable SYMENOW, G CHRISTOPHER PA Unavailable Unavailable SYMENOW, G CHRISTOPHER PA Unavailable Unavailable SYMENOW, G CHRISTOPHER PA Unavailable Unavailable SYMENOW, G CHRISTOPHER PA Unavailable Unavailable SYMENOW, G CHRISTOPHER PA Unavailable Unavailable SYMENOW, G CHRISTOPHER PA Unavailable Unavailable Marie Cox MD Unavailable Unavailable Marie Cox MD Unavailable Unavailable Marie Cox MD Unavailable Unavailable Marie Cox MD Unavailable Unavailable Marie Cox MD Unavailable Unavailable Marie Cox MD Unavailable Unavailable Marie Cox MD Unavailable Unavailable Marie Cox MD Unavailable Unavailable Marie Cox MD Unavailable Unavailable Marie Cox MD Unavailable Unavailable Marie Cox MD Unavailable Unavailable Marie Cox MD Unavailable Unavailable Marie Cox MD Unavailable Unavailable Marie Cox MD Unavailable Unavailable Marie Cox MD Unavailable Unavailable Marie Cox MD Unavailable Unavailable Marie Cox MD Unavailable Unavailable Marie Cox MD Unavailable Unavailable Marie Cox MD Unavailable Unavailable Marie Cox MD Unavailable Unavailable Marie Cox MD Unavailable Unavailable Marie Cox MD Unavailable Unavailable Marie Cox MD Unavailable Unavailable Marie Cox MD Unavailable Unavailable Marie Cox MD Unavailable Unavailable Marie Cox MD Unavailable Unavailable Marie Cox MD Unavailable Unavailable Marie Cox MD Unavailable Unavailable Marie Cox MD Unavailable Unavailable Marie Cox MD Unavailable Unavailable Marie Cox MD Unavailable Unavailable Marie Cox MD Unavailable Unavailable Marie Cox MD Unavailable Unavailable Marie Cox MD Unavailable Unavailable Marie Cox MD Unavailable Unavailable Marie Cox MD Unavailable Unavailable Marie Cox MD Unavailable Unavailable Marie Cox MD Unavailable Unavailable Marie Cox MD Unavailable Unavailable Marie Cox MD Unavailable Unavailable Marie Cox MD Unavailable Unavailable Marie Cox MD Unavailable Unavailable Marie Cox MD Unavailable Unavailable Marie Cox MD Unavailable Unavailable Marie Cox MD Unavailable Unavailable Marie Cox MD Unavailable Unavailable Marie Cox MD Unavailable Unavailable Marie Cox MD Unavailable Unavailable Marie Cox MD Unavailable Unavailable Marie Cox MD Unavailable Unavailable Marie Cox MD Unavailable Unavailable Marie Cox MD Unavailable Unavailable Marie Cox MD Unavailable Unavailable Marie Cox MD Unavailable Unavailable Marie Cox MD Unavailable Unavailable Madison, L Jemima RPA Unavailable Unavailable Madison, L Jemima RPA Unavailable Unavailable Madison, L Jemima RPA Unavailable Unavailable Madison, L Jemima RPA Unavailable Unavailable Madison, L Jemima RPA Unavailable Unavailable Madison, L Jemima RPA Unavailable Unavailable Madison, L Jemima RPA Unavailable Unavailable Madison, L Jemima RPA Unavailable Unavailable Madison, L Jemima RPA Unavailable Unavailable Madison, L Jemima RPA Unavailable Unavailable Madison, L Jemima RPA Unavailable Unavailable Madison, L Jemima RPA Unavailable Unavailable Madison, L Jemima RPA Unavailable Unavailable Madison, L Jemima RPA Unavailable Unavailable Madison, L Jemima RPA Unavailable Unavailable Madison, L Jemima RPA Unavailable Unavailable Madison, L Jemima RPA Unavailable Unavailable Madison, L Jemima RPA Unavailable Unavailable Madison, L Jemima RPA Unavailable Unavailable Madison, L Jemima RPA Unavailable Unavailable Madison, L Jemima RPA Unavailable Unavailable Madison, L Jemima RPA Unavailable Unavailable Madison, L Jemima RPA Unavailable Unavailable Madison, L Jemima RPA Unavailable Unavailable Madison, L Jemima RPA Unavailable Unavailable Madison, L Jemima RPA Unavailable Unavailable Madison, L Jemiam RPA Unavailable Unavailable Madison, L Jemima RPA Unavailable Unavailable Madison, L Jemima RPA Unavailable Unavailable Madison, L Jemima RPA Unavailable Unavailable Madison, L Jemima RPA Unavailable Unavailable Madison, L Jemima RPA Unavailable Unavailable SCHMITT, W KAYLA PA Unavailable Unavailable SCHMITT, W KAYLA PA Unavailable Unavailable SCHMITT, W KAYLA PA Unavailable Unavailable SCHMITT, W KAYLA PA Unavailable Unavailable SCHMITT, W KAYLA PA Unavailable Unavailable SCHMITT, W KAYLA PA Unavailable Unavailable SCHMITT, W KAYLA PA Unavailable Unavailable SCHMITT, W KAYLA PA Unavailable Unavailable SCHMITT, W KAYLA PA Unavailable Unavailable SCHMITT, W KAYLA PA Unavailable Unavailable SCHMITT, W KAYLA PA Unavailable Unavailable SCHMITT, W KAYLA PA Unavailable Unavailable SCHMITT, W KAYLA PA Unavailable Unavailable SCHMITT, W KAYLA PA Unavailable Unavailable SCHMITT, W KAYLA PA Unavailable Unavailable SCHMITT, W KAYLA PA Unavailable Unavailable SCHMITT, W KAYLA PA Unavailable Unavailable SCHMITT, W KAYLA PA Unavailable Unavailable SCHMITT, W KAYLA PA Unavailable Unavailable SCHMITT, W KAYLA PA Unavailable Unavailable SCHMITT, W KAYLA PA Unavailable Unavailable SCHMITT, W KAYLA PA Unavailable Unavailable SCHMITT, W KAYLA PA Unavailable Unavailable SCHMITT, W KAYLA PA Unavailable Unavailable SCHMITT, W KAYLA PA Unavailable Unavailable SCHMITT, W KAYLA PA Unavailable Unavailable SCHMITT, W KAYLA PA Unavailable Unavailable SCHMITT, W KAYLA PA Unavailable Unavailable SCHMITT, W KAYLA PA Unavailable Unavailable SCHMITT, W KAYLA PA Unavailable Unavailable SCHMITT, W KAYLA PA Unavailable Unavailable SCHMITT, W KAYLA PA Unavailable Unavailable SCHMITT, W KAYLA PA Unavailable Unavailable SCHMITT, W KAYLA PA Unavailable Unavailable SCHMITT, W KAYLA PA Unavailable Unavailable SCHMITT, W KAYLA PA Unavailable Unavailable SCHMITT, W KAYLA PA Unavailable Unavailable SCHMITT, W KAYLA PA Unavailable Unavailable SCHMITT, W KAYLA PA Unavailable Unavailable SCHMITT, W KAYLA PA Unavailable Unavailable SCHMITT, W KAYLA PA Unavailable Unavailable SCHMITT, W KAYLA PA Unavailable Unavailable SCHMITT, W KAYLA PA Unavailable Unavailable SCHMITT, W KAYLA PA Unavailable Unavailable OMAR, SHANE SCOTT PA Unavailable Unavailable OMAR, SHANE SCOTT PA Unavailable Unavailable OMAR, SHANE SCOTT PA Unavailable Unavailable OMAR, SHANE SCOTT PA Unavailable Unavailable OMAR, SHANE SCOTT PA Unavailable Unavailable OMAR, SHANE SCOTT PA Unavailable Unavailable OMAR, SHANE SCOTT PA Unavailable Unavailable OMAR, SHANE SCOTT PA Unavailable Unavailable OMAR, SHANE SCOTT PA Unavailable Unavailable OMAR, SHANE SCOTT PA Unavailable Unavailable OMAR, SHANE SCOTT PA Unavailable Unavailable OMAR, SHANE SCOTT PA Unavailable Unavailable OMAR, SHANE SCOTT PA Unavailable Unavailable OMAR, SHANE SCOTT PA Unavailable Unavailable OMAR, SHANE SCOTT PA Unavailable Unavailable OMAR, SHANE SCOTT PA Unavailable Unavailable OMAR, SHANE SCOTT PA Unavailable Unavailable OMAR, SHANE SCOTT PA Unavailable Unavailable OMAR, SHANE SCOTT PA Unavailable Unavailable OMAR, SHANE SCOTT PA Unavailable Unavailable OMAR, SHANE SCOTT PA Unavailable Unavailable OMAR, SHANE SCOTT PA Unavailable Unavailable Re-disclosure Warning The records that you are about to access may contain information from federally-assisted alcohol or drug abuse programs. If such information is present, then the following federally mandated warning applies: This information has been disclosed to you from records protected by federal confidentiality rules (42 CFR part 2). The federal rules prohibit you from making any further disclosure of this information unless further disclosure is expressly permitted by the written consent of the person to whom it pertains or as otherwise permitted by 42 CFR part 2. A general authorization for the release of medical or other information is NOT sufficient for this purpose. The Federal rules restrict any use of the information to criminally investigate or prosecute any alcohol or drug abuse patient.The records that you are about to access may contain highly sensitive health information, the redisclosure of which is protected by Article 27-F of the [facility] Public Health law. If you continue you may have access to information: Regarding HIV / AIDS; Provided by facilities licensed or operated by the [facility] Office of Mental Health; or Provided by the [facility] Office for People With Developmental Disabilities. If such information is present, then the following [facility] mandated warning applies: This information has been disclosed to you from confidential records which are protected by state law. State law prohibits you from making any further disclosure of this information without the specific written consent of the person to whom it pertains, or as otherwise permitted by law. Any unauthorized further disclosure in violation of state law may result in a fine or shelter sentence or both. A general authorization for the release of medical or other information is NOT sufficient authorization for further disc losure. Family History Family Member Name Family Member Gender Family Member Status Date o f Status Description Data Source(s) Unknown Male Problem MEDENT ([facility], ) Encounters Encounter Providers Location Date Indications Data Source(s ) Unknown [address] [place] [phone] 07/03/2021 12:00:00 AM EDT eCW1 ([facility]) Outpatient Attender: Jemima Butterfield/Nam/Garfield/Nadine carrillo 06/07/2021 11:30:00 AM EDT MEDENT ([facility], ) Outpatient [address] [place] [phone] 04/12/2021 12:00:00 AM EDT eCW1 ([facility]) Outpatient [address] [place] [phone] 04/10/2021 12:00:00 AM EDT eCW1 ([facility]) Outpatient Attender: JAKOB milian 02/04/2021 07:20:00 AM EST MEDENT ([facility]) (WC 20ESGYN) 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 [employer]ipped [employer] [address] [place] [phone] 10/20/2020 12:00:00 AM EST eCW1 ([facility]) Outpatient [address] [place] [phone] 10/12/2020 12:00:00 AM EST eCW1 ([facility]) Outpatient Attender: Diana WHITEWYATT 09/07/2020 04:07:01 P M EDT [facility] Outpatient Attender: Diana NAVARRETE 09[facility]07[facility] NAVARRETE 09/07/2020 03:05:01 P M EDT [facility] Outpatient Attender: Diana NAVARRETE 09/07/2020 [facility]: [facility] NAVARRETE [facility]07[facility]: [facility] WHITEWYATT [facility]07[facility]: HERNANDEZ PHIPPSeferrer: Vaughn Morin [facility] 07/18/2020 08:02:00 PM EDT - 07/18/2020 09:15:00 PM [facility] Patient discharged. Emergency Attender: SCOTT NELSON PAReferrer: Jaskaran Cox MD 12/26/2016 05:54:00 PM [facility] - 12/26/2016 06:34:00 PM [facility] Emergency Attender: HERNANDEZ PHIPPSeferrer: Matt Cox MD 06/18/2014 11:30:00 AM EDT - 06/18/2014 12:38:00 PM [facility] Emergency Attender: KAYLA OWENS 11:50:00 PM EDT - 02/12/2014 02:45:00 AM [facility] Immunizations Vaccine Date Status Description Data Source(s) COVID-19 VACCINE Pfizer 07/28/2021 12:00:00 AM EDT completed [facility] Vaccine Series Complete: YESThis Data wa s Submitted to [facility] Via [employer]. COVID-19 VACCINE Pfizer 07/07/2021 12:00:00 AM EDT completed [facility] Vaccine Series Complete: NOThis Data was Submitted to [facility] Via [employer]. influenza, recombinant, quadrIvalent,injectable, prese rvative free 10/12/2020 03:14:00 PM EST completed eCW1 ([facility], [facility]) influenza, recombinant, quadrIvalent,injectable, prese rvative free 10/12/2020 03:14:00 PM EST completed eCW1 ([facility]) influenza, recombinant, quadrIvalent,injectable, prese rvative free 10/12/2020 03:14:00 PM EST completed eCW1 ([facility], [facility]) influenza, recombinant, quadrIvalent,injectable, prese rvative free 10/12/2020 03:14:00 PM EST completed eCW1 ([facility]) influenza, recombinant, quadrIvalent,injectable, prese rvative free 10/12/2020 03:14:00 PM EST completed eCW1 ([facility]) Medications No Information Insurance Providers Payer name Policy type / Coverage type Policy ID Covered green party ID Covered green party's relationship to garrison Policy [place] Plan Information MEDICARE 4 [id number] 1 [id number] MEDICARE 4 [id number] 1 [id number] MEDICARE [id number] SP [id number] [facility] Horizons O [id number] S [id number] D [facility] O [id number] S [id number] [facility] MEDICARE SOLUTIO [id number] 1 [id number] Medicaid Dental O [id number] S [id number] Medicaid Dental S [id number] S [id number] [facility] MEDICARE [id number] Radha [id number] MEDICAID [id number] Radha [id number] MEDICARE COMPLETE [id number] SP [id number] MEDICAID [id number] SP [id number] [facility] MEDICARE [id number] S [id number] [facility] MEDICARE [id number] S [id number] ANS-Medicaid [id number] [facility] [id number] ANSI-Medicare Part B [id number] ANSI-Medicaid [id number] ANSI-Medicare Part B [id number] ANSI-Medicaid [id number] Medicaid [facility] Part B [id number] Self [id number] [employer] Medicare Commercial [id number] Self [id number] ANSI-Medicare Part B [id number] ANSI-Medicaid [id number] ANS-Medicare Part B [id number] ANSI-Medicaid [id number] ANSI-Medicaid [id number] ANSI-Medicare Part B [id number] Medicaid [place] [facility] Part [facility] [id number] Self [id number] ANSI-Medicare Part B [id number] ANSI-Medicaid [id number] ANSI-Medicaid [id number] ANSI-Medicare Part B [id number] ANSI-Medicaid [id number] ANSI-Medicare Part B [id number] [place] [id number] SP [id number] N ANSI-Medicare Part B [id number] ANSI-Medicaid [id number] [facility]-Medicare Part B [id number] ANS-Medicaid [id number] [facility]-Medicare Part B [id number] MEDICARE COMPLETE [id number] SP [id number] MEDICARE COMPLETE-UHC O [id number] S [id number] MEDICAID M [id number] S [id number] MEDICAID PI PI [facility] MEDICARE PI PI MEDICARE COMPLETE [id number] SP [id number] Self Pay P [id number] S [id number] Self Pay P UNAVAILABLE S UNAVAILA BLE D Secure Horizons by [facility] P [id number] S [id number] D Secure Horizons by [facility] O [id number] S [id number] Medicaid O [id number] S [id number] MEDICARE COMPLETE [id number] SP [id number] SECURE HORIZONS [id number] SP [id number] EVERCARE [id number] SP [id number] NATL GRANGE MUTUAL [id number] TODAYS OPTIONS [id number] SP [id number] SELF PAY 2 UNAVAILABLE 1 UNAVAILA BLE MEDICAID [place] 3 [id number] N D Secure Horizons by [facility] P UNAVAILABLE S UNAVAILABLE [employer] Secure Horizons O [id number] S [id number] MEDICARE COMPLETE-UHC P [id number] S [id number] ANSI-Medicaid [id number] MEDICARE COMPLETE [id number] SP [id number] MEDICARE COMPLETE [id number] SP [id number] [place] [id number] SP [id number] Medicaid S [id number] S [id number] Medicare P [id number] S [id number] MEDICAID [id number] S [id number] MEDICAID [id number] S [id number] [facility] MEDICARE [id number] S [id number] MEDICAID [id number] SP [id number] [facility]-Medicare Part B [id number] [facility]-Medicaid [id number] [facility] [id number] [facility]-Medicaid [id number] Problems, Conditions, and Diagnoses No Information Surgeries/Procedures Procedure Description Date Indications Data Source(s) OFFICE OUTPATIENT VISIT 15 MINUTES 06/07/2021 12:00:00 AM EDT MED[facility] ([facility] [place], ) Immunization: Flublok Quadrivalent (18 years & older) 0.5mL IM (Influenza) 10/12/2020 12:00:00 AM EST eCW1 ([facility]) Results ID Date Data Source [id number] 02/04/2021 09:18:00 AM EST [facility] ([facility]) Name Value Range Interpretation Code Description Data Ana rce(s) Supporting Document(s) Bacteria identified in Throat by Culture Laboratory test result [facility] ([facility]) NO Rx ID Date Data Source [id number] 02/04/2021 12:00:00 AM EST [facility] Name Value Range Interpretation Code Description Data Ana rce(s) Supporting Document(s) SARS-CoV2 Rapid Antigen [facility] This lab was reported by Jose Carlos Morales. ID Date Data Source [id number] 09/07/2020 01:57:07 PM EDT [facility] Vital SignsBlood Pressure: 121/84 Patient History Medical History:HypothyroidismFamily History:Diabetes (Mother)Social/Personal History: Smoking Status: never smokerCurrent Problems: Dental pain (ICD-525.9) (ICD10- K08.8)Problem list reviewed during this update.Current Medications: * VIT D * LEVOTHYROXINE ZYRTEC ALLERGY 10 MG ORAL CAPSULE (CETIRIZINE HCL) Medication list reviewed during this update.Current Allergies: * ZPAK (Critical)* SEASONAL (Moderate)Allergy list reviewed during this update.Past Medical History:(reviewed - no changes required) Hypothyroidism Dental Chart: Procedures:Type - CDT Code - Description B - (D0120) Periodic oral evaluation - established patient (Performed by Karyna Guerin DMD) B - (D1110) Prophylaxis, adult (Performed by Antonia Beck RDH) B - (D0274) Bitewings, 4 radiographic images (Performed by Antonia Beck RDH) Chart Alert:[employer] phone #[phone] 1 per 6 month periodchild through age 12adult 13+next avail has an appt 07/29/2016Exam 1 per 6 month periodnext avail has an appt 07/29/2016Fl2 1 per 6 month periodthrough age 20next availBwx 4 films per 6 month periodnext avail 07/29/2016panorex 1 every 3 yearsnext avail 07/17/2015Sealants every 5 yearsage 5-15 Chart Notes:sraso (Sep 07 2020 2:40PM): [facility] with patient- No changes. No problems or concerns today. Adult prophy- handscaled, south african- mint prophy paste, floss, 4 BW'sOH- Patient brushes once/day and NOT flossing regularlyHeavy gen marginal biofilm and marginal/introproximal calculus on LA. Marginal tissue is red, inflamed w ith with bleeding on scaling.OHI- Advise to brush 2x a day and floss everyday. Went over brushing along the gum line and flossing properly. Also recommeded to clean her partials every night. Patient is cooperative. NV- 6 month recallRasbakari Antonia SETH by richie (09/07/2020 2:40 PM): ; fatou (Sep 07 2020 4:06PM): [facility](- ). CC: none. Reviewed Xrays. Exam: no caries detected. OCS: WNL, IO/ EO completed, No significant hard findings upon clinical exam.Additional PPE requirements due to COVID-19 in the dental setting, N95, surgical mask, hair covering, gown and shieldPt was cooperative. OHI given Referral: N/A NV:recallRasRonald villegas RDHie by fatou (09/07/2020 4:06 PM): Tooth Notes and Watches:- Tooth 13 Watch: Shannon Matute by michoacano (07/29/2016 3:40 PM): - Tooth 15 Watch: Antonia Lorenzana by sendy (02/27/2018 8:04 AM): - Tooth 24 Note: Mobile Mindy Ramos by asha (03/15/2013 10:03 AM): - Tooth 25 Note: Mobile Mindy Ramos by asha (03/15/2013 10:03 AM): - Tooth 30 Watch: Shannon Matute by [employer] (07/29/2016 3:40 PM): Assessment & Plan Medications:VIT DLEVOTHYROXINEZYRTEC ALLERGY 10 MG ORAL CAPSULEAllergies:* ZPAK (Critical)* SEASONAL (Moderate) Name Value Range Interpretation Code Description Data Ana rce(s) Supporting Document(s) Procedure Social History Code Duration Value Status Description Data Source(s ) Smoking 04/12/2021 12:00:00 AM EDT Never Smoker completed Never S chidi [facility] Smoking 04/12/2021 12:00:00 AM EDT Never Smoker completed Never S moker eCW1 ([facility]) Smoking 04/10/2021 12:00:00 AM EDT Never Smoker completed Never S moker eCW1 ([facility]) Smoking 10/20/2020 12:00:00 AM EST Never Smoker completed Never S moker eCW1 ([facility]) Smoking 10/12/2020 12:00:00 AM EST Never Smoker completed Never S moker eCW1 ([facility]) Vital Signs ID Date Data Source UNK Name Value Range Interpretation Code Description Data Source(s) Systolic blood [facility] 140 mm[Hg] 140 [facility]Hg[facility] Diastolic blood pressure 80 mm[Hg] 80 mm[Hg] [facility] ([facility]) Body height 63 [in_i] 63 [in_i] [facility] ([facility]) 5'3" Body weight 260.00 [lb_av] 260.00 [lb_av] [facility] ([facility]) Body mass index (BMI) [Ratio] 46.1 kg/m2 46.1 k g/m2 [facility] ([facility]) [place] body weight 115 [lb_av] 115 [lb_av] [facility] T ([facility]) Body weight 117.936 kg 117.936 kg [facility] ([facility]) Body surface area Derived from formula 2.16 m2 2.16 m2 [facility] ([facility]) Body weight 254 [lb_av] 254 [lb_av] eCW1 ([facility]) Body height 61.5 [in_i] 61.5 [in_i] eCW1 ([facility]) Body mass index (BMI) [Ratio] 47.21 kg/m2 47.21 kg/m2 W[facility] ([facility]) Heart rate 72 /min 72 /min eCW1 ([facility]) Respiratory rate 18 /min 18 /min eCW1 ([facility]) Body temperature 99.0 [degF] 99.0 [degF] eCW1 ( [facility]) Systolic blood pressure 142 mm[Hg] 142 mm[Hg] e CW1 ([facility]) Diastolic blood pressure 74 mm[Hg] 74 mm[Hg] eCW1 ([facility]) Body weight 254 [lb_av] 254 [lb_av] eCW1 ([facility]) Body height 61.5 [in_i] 61.5 [in_i] eCW1 ([facility]) Body mass index (BMI) [Ratio] 47.21 kg/m2 47.21 kg/m2 eCW1 ([facility]) Systolic blood pressure 112 mm[Hg] 112 mm[Hg] e CW1 ([facility]) Diastolic blood pressure 78 mm[Hg] 78 mm[Hg] eCW1 ([facility]) Body weight 115.21 kg 115.21 kg W1 ([facility]) Respiratory rate 16 /min 16 /min MED[facility] ( [facility]) Heart rate 70 /min 70 /min MED[facility] ([facility]) Oxygen saturation in Arterial blood by Pulse oximetry 99 % 99 % MED[facility] ([facility], [facility]) Body height 63 [in_i] 63 [in_i] MED[facility] ([facility]) 5'3" Body mass index (BMI) [Ratio] 44.3 kg/m2 44.3 k g/m2 MED[facility] ([facility]) Diastolic blood pressure 90 mm[Hg] 90 mm[Hg] MEDENT ([facility]) Systolic blood pressure 150 mm[Hg] 150 mm[Hg] M EDENT ([facility], [facility]) Body temperature 97.0 [degF] 97.0 [degF] MEDENT ([facility]) Body weight 250.00 [lb_av] 250.00 [lb_av] MEDEN T ([facility], [facility]) Body weight 261 [lb_av] 261 [lb_av] eCW1 ([facility]) Body weight 118.39 kg 118.39 kg eCW1 ([facility]) Body height 61.5 [in_i] 61.5 [in_i] eCW1 ([facility]) Body mass index (BMI) [Ratio] 48.51 kg/m2 48.51 kg/m2 eCW1 ([facility]) Systolic blood pressure 122 mm[Hg] 122 mm[Hg] e CW1 ([facility]) Diastolic blood pressure 80 mm[Hg] 80 mm[Hg] eCW1 ([facility]) Body weight 260 [lb_av] 260 [lb_av] eCW1 ([facility]) Body height 61.5 [in_i] 61.5 [in_i] eCW1 ([facility]) Body mass index (BMI) [Ratio] 48.33 kg/m2 48.33 kg/m2 W1 ([facility]) Heart rate 74 /min 74 /min eCW1 ([facility]) Respiratory rate 18 /min 18 /min eCW1 ([facility]) Body temperature 97.5 [degF] 97.5 [degF] eCW1 ( [facility]) Systolic blood pressure 130 mm[Hg] 130 mm[Hg] e CW1 ([facility]) Diastolic blood pressure 78 mm[Hg] 78 mm[Hg] eCW1 ([facility]) ID Date Data Source [id number] 07/20/2020 03:43:00 AM EDT [facility] Name Value Range Interpretation Code Description Data Source(s) WEIGHT 145.14 kilos 145.14 kilos [facility] HEIGHT 157.48 centimeters 157.48 centimeter [facility]
[2021-09-18] MEDS ORDERED: propofoL 500 MG/50 ML VIAL As Ordered ONE (10:14)
[2021-09-18] MEDS ORDERED: LIDOCAINE 2% 100MG/5ML SDV (FOR ANES.) As Ordered ONE (10:14)
--- NOTE | 2021-09-18 10:43 | ROOR ---
Patient Name: Brii Alvares Procedure Date: 09/18/2021 10:04 AM Date of : 1965 Age: 56 Room: [facility] Gender: Female Note Status: Finalized Procedure: Colonoscopy Indications: High risk colon cancer surveillance: Personal history of colonic polyps, Last colonoscopy: 2016 Providers: Alex العراقي MD Referring MD: Jessica Morin NP Requesting Provider: Medicines: Monitored Anesthesia Care Complications: No immediate complications. Procedure: Pre-Anesthesia Assessment: - Prior to the procedure, a History and Physical was performed, and patient medications and allergies were reviewed. The patient is competent. The risks and benefits of the procedure and the sedation options and risks were discussed with the patient. All questions were answered and informed consent was obtained. Patient identification and proposed procedure were verified by the physician, the nurse and the anesthesiologist in the procedure room. Mental Status Examination: alert and oriented. Prophylactic Antibiotics: The patient does not require prophylactic antibiotics. Prior Anticoagulants: The patient has taken no previous anticoagulant or antiplatelet agents. ASA Grade Assessment: III - A patient with severe systemic disease. After reviewing the risks and benefits, the patient was deemed in satisfactory condition to undergo the procedure. The anesthesia plan was to use monitored anesthesia care (MAC). Immediately prior to administration of medications, the patient was re-assessed for adequacy to receive sedatives. The heart rate, respiratory rate, oxygen saturations, blood pressure, adequacy of pulmonary ventilation, and response to care were monitored throughout the procedure. The physical status of the patient was re-assessed after the procedure. The Colonoscope was introduced through the anus and advanced to the cecum, identified by appendiceal orifice and ileocecal valve. The colonoscopy was somewhat difficult due to inadequate bowel prep. The patient tolerated the procedure well. The quality of the bowel preparation was poor. There were several small areas obscured by residual debris despite attempts to irrigate. Findings: The perianal and digital rectal examinations were normal. A 6 mm polyp was found in the proximal ascending colon. The polyp was sessile. Biopsies were taken with a cold forceps for histology. Estimated blood loss was minimal. There was a small lipoma, in the ascending colon. Impression: - Preparation of the colon was poor. - One 6 mm polyp in the proximal ascending colon. Biopsied. - Small lipoma in the ascending colon. Recommendation: - Discharge patient to home. - Resume previous diet. - Continue present medications. - Await pathology results. Procedure Code(s): --- Professional --- 18867, Colonoscopy, flexible; with biopsy, single or multiple Diagnosis Code(s): --- Professional --- Z86.010, Personal history of colonic polyps K63.5, Polyp of colon D17.5, Benign lipomatous neoplasm of intra-abdominal organs CPT copyright 2019 [employer] [place] [employer]. All rights reserved. The codes documented in this report are preliminary and upon food and nutrition supervisor review may be revised to meet current compliance requirements. Alex العراقي MD Alex العراقي MD 09/18/2021 10:43:24 AM Electronically signed by Alex العراقي MD Number of Addenda: 0 Note Initiated On: 09/18/2021 10:04 AM Estimated Blood Loss: Estimated blood loss was minimal.
[2021-09-18 11:00] VITALS: BP 137/64
== END 2021-09-18 11:15 | disposition home or self-care (01) ==
LOC: M OPP 09:00
PROVIDERS: ATTEND Surgery
DX: Z12.11 Encounter for screening for malignant neoplasm of colon (principal); Z86.010 Personal history of colon polyps; K63.5 Polyp of colon; D17.5 Benign lipomatous neoplasm of intra-abdominal organs; Z79.899 Other long term (current) drug therapy; Z88.1 Allergy status to other antibiotic agents; Z86.711 Personal history of pulmonary embolism; Z85.42 Personal history of malignant neoplasm of other parts of uterus

== ENCOUNTER → 2021-10-11 | Outpatient (REF) | payer MEDICARE, MEDICAID ==
[~2021-10-11] MED LIST changes: -NS 1,000 ML IV ONE
== END ==
LOC: M SFHCWAGY 18:59
PROVIDERS: ATTEND Nurse Practitioner Women's Health
DX: Z12.72 Encounter for screening for malignant neoplasm of vagina (principal)
CPT/HCPCS: G0123; G0463

== ENCOUNTER → 2022-04-26 | Outpatient (CLI) | payer MEDICARE, MEDICAID ==
[2022-04-26 11:20] LABS: BASO % 0.5 % (0.0-1.0); EOS # 0.1 10^3/uL (0.0-0.5); EOS % 1.2 % (0.0-3.0); HEMATOCRIT 41.5 % (36.0-47.0); HEMOGLOBIN 13.6 g/dl (12.0-15.5); LYMPH # 1.5 10^3/uL (1.5-5.0); LYMPH % 34.5 % (24.0-44.0); MEAN CORPUSCULAR HEMOGLOBIN 28.8 pg (27.0-33.0); MEAN CORPUSCULAR HGB CONC 32.8 g/dl (32.0-36.5); MEAN CORPUSCULAR VOLUME 87.7 fl (80.0-96.0); MONO # 0.4 10^3/uL (0.0-0.8); MONO % 9.9 % (2.0-8.0); NEUTROPHILS # 2.3 10^3/uL (1.5-8.5); NEUTROPHILS % 53.7 % (36.0-66.0); PLATELET COUNT, AUTOMATED 193 10^3/uL (150-450); RED BLOOD COUNT 4.73 10^6/uL (4.00-5.40); WHITE BLOOD COUNT 4.2 10^3/uL (4.0-10.0)
[2022-04-26 11:40] LABS: ALBUMIN 3.4 GM/DL (3.2-5.2); ALT/SGPT 21 U/L (12-78); BILIRUBIN,TOTAL 0.7 MG/DL (0.2-1.0); BLOOD UREA NITROGEN 15 MG/DL (7-18); CALCIUM LEVEL 8.8 MG/DL (8.5-10.1); CARBON DIOXIDE LEVEL 31 MEQ/L (21-32); CHLORIDE LEVEL 109 MEQ/L (98-107); CHOLESTEROL LEVEL 152 MG/DL (<200); CHOLESTEROL RISK RATIO 2.171 (<5); CREATININE FOR GFR 0.79 MG/DL (0.55-1.30); FREE T4 1.27 NG/DL (0.76-1.46); GLOMERULAR FILTRATION RATE > 60.0 (>51); GLUCOSE, FASTING 72 MG/DL (70-100); HDL CHOLESTEROL 70 MG/DL (>40); LDL CHOLESTEROL 68 MG/DL (<100); NON-HDL-C 82 MG/DL; POTASSIUM SERUM 4.3 MEQ/L (3.5-5.1); SODIUM LEVEL 141 MEQ/L (136-145); TOTAL PROTEIN 6.3 GM/DL (6.4-8.2); TRIGLYCERIDES LEVEL 69 MG/DL (<150)
[2022-04-26 11:41] LABS: TOTAL 25(OH) VITAMIN D 35.2 NG/ML (30.0-100.0)
[2022-04-26 13:59] LABS: HEMOGLOBIN A1c 4.8 %
== END ==
LOC: M WUC 08:20
PROVIDERS: ATTEND Nurse Practitioner Family
DX: J30.9 Allergic rhinitis, unspecified (principal); E55.9 Vitamin D deficiency, unspecified; E03.9 Hypothyroidism, unspecified; F71 Moderate intellectual disabilities; Z79.899 Other long term (current) drug therapy

== ENCOUNTER → 2022-08-26 | Outpatient (REF) | payer MEDICARE, MEDICAID | LOC: M SFHCWAGY 10:26 | PROVIDERS: ATTEND Nurse Practitioner Family | DX: Z12.4 Encounter for screening for malignant neoplasm of cervix (principal) ==

== ENCOUNTER → 2022-08-26 | Outpatient (CLI) | payer MEDICARE, MEDICAID | LOC: M WHC 14:06 | PROVIDERS: ATTEND Nurse Practitioner Family | DX: Z12.31 Encounter for screening mammogram for malignant neoplasm of breast (principal) ==

== ENCOUNTER → 2022-09-26 | Outpatient (CLI) | payer MEDICARE, MEDICAID | LOC: M RAD 07:44 | PROVIDERS: ATTEND Physician Assistant | DX: S62.115A Nondisplaced fracture of triquetrum [cuneiform] bone, left wrist, initial encounter for closed fracture (principal); X58.XXXA Exposure to other specified factors, initial encounter; Y92.9 Unspecified place or not applicable ==

== ENCOUNTER → 2023-02-28 | Outpatient (REF) | payer MEDICARE, MEDICAID | LOC: M PLALAB 13:50 | PROVIDERS: ATTEND Nurse Practitioner Family | DX: Z12.72 Encounter for screening for malignant neoplasm of vagina (principal) ==

== ENCOUNTER → 2023-05-07 | Outpatient (REF) | payer MEDICARE, MEDICAID ==
[2023-05-07 11:40] LABS: BASO % 0.8 % (0.0-1.0); EOS % 0.8 % (0.0-3.0); HEMATOCRIT 42.7 % (36.0-47.0); HEMOGLOBIN 14.4 g/dl (12.0-15.5); LYMPH # 1.7 10^3/uL (1.5-5.0); LYMPH % 33.5 % (24.0-44.0); MEAN CORPUSCULAR HEMOGLOBIN 29.4 pg (27.0-33.0); MEAN CORPUSCULAR HGB CONC 33.7 g/dl (32.0-36.5); MEAN CORPUSCULAR VOLUME 87.3 fl (80.0-96.0); MONO # 0.5 10^3/uL (0.0-0.8); MONO % 10.1 % (2.0-8.0); NEUTROPHILS # 2.8 10^3/uL (1.5-8.5); NEUTROPHILS % 54.6 % (36.0-66.0); PLATELET COUNT, AUTOMATED 196 10^3/uL (150-450); RED BLOOD COUNT 4.89 10^6/uL (4.00-5.40)
[2023-05-07 11:45] LABS: THYROID STIMULATING HORMONE 2.086 uIU/ML (0.55-4.78); TOTAL 25(OH) VITAMIN D 29.2 NG/ML (20.0-100.0)
[2023-05-07 11:47] LABS: FREE T4 1.11 NG/DL (0.89-1.76)
[2023-05-07 11:57] LABS: ALBUMIN 3.7 G/DL (3.2-5.2); ALKALINE PHOSPHATASE 79 U/L (46-116); ALT/SGPT 21 U/L (7.0-40); AST/SGOT 19 U/L (<34); BILIRUBIN,TOTAL 0.6 MG/DL (0.3-1.2); BLOOD UREA NITROGEN 14 MG/DL (9-23); CALCIUM LEVEL 8.5 MG/DL (8.5-10.1); CARBON DIOXIDE LEVEL 32 MMOL/L (20-31); CHLORIDE LEVEL 106 MMOL/L (98-107); CHOLESTEROL LEVEL 178 MG/DL (<200); CHOLESTEROL RISK RATIO 2.49 (<5); CREATININE FOR GFR 0.77 MG/DL (0.55-1.30); GLOMERULAR FILTRATION RATE > 60.0 (>51); GLUCOSE, FASTING 91 MG/DL (60-100); HDL CHOLESTEROL 71.4 MG/DL (>40); LDL CHOLESTEROL 91.2 MG/DL (<100); NON-HDL-C 106.6 MG/DL; POTASSIUM SERUM 4.2 MMOL/L (3.5-5.1); SODIUM LEVEL 144 MMOL/L (136-145); TOTAL PROTEIN 6.4 G/DL (5.7-8.2); TRIGLYCERIDES LEVEL 77 MG/DL (<150)
== END ==
LOC: M SFHCCLAY 08:22
PROVIDERS: ATTEND Nurse Practitioner Family
DX: J30.9 Allergic rhinitis, unspecified (principal); E55.9 Vitamin D deficiency, unspecified; E03.9 Hypothyroidism, unspecified; F71 Moderate intellectual disabilities; Z13.1 Encounter for screening for diabetes mellitus

== ENCOUNTER → 2023-08-06 | Outpatient (REF) | payer MEDICARE, MEDICAID | LOC: M SFHCWAGY 17:34 | PROVIDERS: ATTEND Nurse Practitioner Family | DX: Z12.4 Encounter for screening for malignant neoplasm of cervix (principal) ==

== ENCOUNTER → 2024-02-05 | Outpatient (CLI) | payer MEDICARE, MEDICAID | LOC: M WHC 07:36 | PROVIDERS: ATTEND Nurse Practitioner Family | DX: Z53.9 Procedure and treatment not carried out, unspecified reason (principal) ==

== ENCOUNTER → 2024-02-05 | Outpatient (REF) | payer MEDICARE, MEDICAID | LOC: M SFHCWAGY 10:19 | PROVIDERS: ATTEND Nurse Practitioner Family | DX: Z12.72 Encounter for screening for malignant neoplasm of vagina (principal) | CPT/HCPCS: 87624; G0123 ==

== ENCOUNTER → 2024-04-28 | Outpatient (REF) | payer MEDICARE, MEDICAID ==
[~2024-04-28] MED LIST changes: +BUPR-597 PO; -BUPR300T92 PO
== END ==
LOC: M SFHCCLAY 11:54
PROVIDERS: ATTEND Nurse Practitioner Family
DX: J30.9 Allergic rhinitis, unspecified (principal); E55.9 Vitamin D deficiency, unspecified; E03.9 Hypothyroidism, unspecified; F71 Moderate intellectual disabilities; Z13.1 Encounter for screening for diabetes mellitus

== ENCOUNTER → 2024-05-13 | Outpatient (CLI) | payer MEDICARE, MEDICAID | LOC: M CARPUL 08:29 | PROVIDERS: ATTEND Nurse Practitioner Family | DX: I70.0 Atherosclerosis of aorta (principal); R00.1 Bradycardia, unspecified ==

== ENCOUNTER → 2024-05-13 | Outpatient (REF) | payer MEDICARE, MEDICAID ==
[2024-05-13 11:47] LABS: BASO % 0.4 % (0.0-1.0); EOS # 0.1 10^3/uL (0.0-0.5); HEMATOCRIT 42.6 % (36.0-47.0); HEMOGLOBIN 14.4 g/dl (12.0-15.5); LYMPH # 1.5 10^3/uL (1.5-5.0); LYMPH % 28.9 % (24.0-44.0); MEAN CORPUSCULAR HEMOGLOBIN 29.8 pg (27.0-33.0); MEAN CORPUSCULAR HGB CONC 33.8 g/dl (32.0-36.5); MONO # 0.5 10^3/uL (0.0-0.8); MONO % 9.8 % (2.0-8.0); NEUTROPHILS # 3.1 10^3/uL (1.5-8.5); NEUTROPHILS % 59.7 % (36.0-66.0); PLATELET COUNT, AUTOMATED 197 10^3/uL (150-450); RED BLOOD COUNT 4.84 10^6/uL (4.00-5.40); WHITE BLOOD COUNT 5.1 10^3/uL (4.0-10.0)
[2024-05-13 12:03] LABS: HEMOGLOBIN A1c 4.8 % (4.0-6.0)
[2024-05-13 12:11] LABS: ALBUMIN 3.7 G/DL (3.2-5.2); ALKALINE PHOSPHATASE 86 U/L (46-116); ALT/SGPT 29 U/L (7.0-40); AST/SGOT 18 U/L (<34); BILIRUBIN,TOTAL 0.9 MG/DL (0.3-1.2); BLOOD UREA NITROGEN 13 MG/DL (9-23); CALCIUM LEVEL 8.9 MG/DL (8.5-10.1); CARBON DIOXIDE LEVEL 32 MMOL/L (20-31); CHLORIDE LEVEL 104 MMOL/L (98-107); CHOLESTEROL LEVEL 169 MG/DL (<200); CHOLESTEROL RISK RATIO 2.76 (<5); CREATININE FOR GFR 0.84 MG/DL (0.55-1.30); GLOMERULAR FILTRATION RATE > 60.0 (>51); GLUCOSE, FASTING 88 MG/DL (60-100); HDL CHOLESTEROL 61.1 MG/DL (>40); LDL CHOLESTEROL 91.9 MG/DL (<100); NON-HDL-C 107.9 MG/DL; POTASSIUM SERUM 4.8 MMOL/L (3.5-5.1); SODIUM LEVEL 139 MMOL/L (136-145); TOTAL PROTEIN 6.3 G/DL (5.7-8.2); TRIGLYCERIDES LEVEL 80 MG/DL (<150)
[2024-05-13 12:13] LABS: FREE T4 1.38 NG/DL (0.89-1.76); THYROID STIMULATING HORMONE 1.959 uIU/ML (0.55-4.78)
[2024-05-13 12:14] LABS: TOTAL 25(OH) VITAMIN D 45.6 NG/ML (20.0-100.0)
== END ==
LOC: M SFHCCLAY 07:21
PROVIDERS: ATTEND Nurse Practitioner Family
DX: J30.9 Allergic rhinitis, unspecified (principal); E55.9 Vitamin D deficiency, unspecified; E03.9 Hypothyroidism, unspecified; F71 Moderate intellectual disabilities; Z13.1 Encounter for screening for diabetes mellitus

== ENCOUNTER → 2024-09-01 | Outpatient (REF) | payer MEDICARE, MEDICAID | LOC: M SFHCWAGY 13:12 | PROVIDERS: ATTEND Nurse Practitioner Family | DX: Z12.72 Encounter for screening for malignant neoplasm of vagina (principal); R87.610 Atypical squamous cells of undetermined significance on cytologic smear of cervix (ASC-US) | CPT/HCPCS: 87624; G0123 ==

== ENCOUNTER → 2024-09-01 | Outpatient (CLI) | payer MEDICARE, MEDICAID | LOC: M WHC 08:44 | PROVIDERS: ATTEND Nurse Practitioner Family | DX: Z12.31 Encounter for screening mammogram for malignant neoplasm of breast (principal) ==

== ENCOUNTER → 2025-11-22 | Outpatient (CLI) | payer MEDICARE, MEDICAID ==
[~2025-11-22] MED LIST changes: -BUPR-597 PO; +BUPR-766 PO
== END ==
LOC: M CLY 07:57
PROVIDERS: ATTEND Nurse Practitioner Family
DX: R07.89 Other chest pain (principal)